=== PATIENT | female | born 1995 | race Two or more races ===

== ENCOUNTER 2019-02-18 18:48 | Emergency (ER) | payer OTHER ==
[2019-02-18] MEDS ORDERED: ACETAMINOPHEN 325 MG TABLET PO ONE (20:19)
[2019-02-18] MEDS ORDERED: IBUPROFEN 600 MG TABLET PO ONE (20:19)
--- NOTE | 2019-02-18 20:19 | ER Document Report ---
HPI - HPI Patient complains to provider of: Left foot injury Time Seen by Provider: 02/18/19 19:45 Context: 23-year-old healthy female presents emergency department after a left foot injury this morning playing soccer and attempted care and she jammed her left toe. She denies hearing a pop, snap, or any other sensation. She is able to bear weight on it with difficulty and it is acutely painful. There is associated swelling and significant ecchymosis around the entire toe. No other complaints. - REPRODUCTIVE Reproductive: DENIES: : Past Medical History - Social History Smoking Status: Never Smoker Chew tobacco use (# tins/day): No Frequency of alcohol use: Rare Drug Abuse: None Family History: None Patient has suicidal ideation: No Patient has homicidal ideation: No Renal/ Medical History: Denies: Hx Peritoneal Dialysis Vertical Provider Document - CONSTITUTIONAL Notes: PHYSICAL EXAMINATION: Reviewed vital signs and charting by RN GENERAL: Alert, interacts well. No acute distress. HEAD: Normocephalic, atraumatic. EYES: Pupils equal and round. Extraocular movements intact. ENT: Oral mucosa moist, tongue midline. EXTREMITIES: Moves all 4 extremities spontaneously. Left great toe with edema and significant ecchymosis, she does have minimal range of motion second to pain. Normal distal neurovascular exam with brisk cap refill. 2+ DP pulse. PSYCH: Normal affect, normal mood. SKIN: Warm, dry, normal turgor. No rashes or lesions noted. - INFECTION CONTROL TRAVEL OUTSIDE OF THE [place] IN LAST 30 DAYS: No Course - Re-evaluation Re-evalutation: 02/18/19 20:14 No evidence of a big toe fracture, most likely representing first metatarsophalangeal sprain i.e. turf toe. I will michele tape her foot and tell her to use reinforced foot wear and provide crutches. Normal distal neurova scular exam. Stable for discharge. - Vital Signs Vital signs: Temp Pulse Resp BP Pulse Ox 98.4 F 79 134/75 H 98 02/18/19 18:55 02/18/19 18:55 02/18/19 18:55 02/18/19 18:55 Discharge - Discharge Clinical Impression: Turf toe Qualifiers: Encounter type: initial encounter Qualified Code(s): S93.529A - Sprain of metatarsophalangeal joint of unspecified toe(s), initial encounter Condition: Good Disposition: HOME, SELF-CARE Additional Instructions: You were seen in the emergency department this evening for a condition called turf toe i.e. a metatarsophalangeal sprain of your left big toe. There was no fracture which is reassuring. You can michele tape the toe and be careful and reduce your activity for the next 1 to 2 weeks. Please use shoes with a stiff soled to provide better support. I can also provide you with a surgical shoe here for support. If you completely loose feeling of the toe, you get severe swelling, it turns black or necrotic, or you have any other concerning symptoms please merely return to the emergency department.
--- NOTE | 2019-02-18 20:32 | RADIOLOGY REPORT (SQ) ---
EXAM DESCRIPTION: Left foot, three views COMPLETED DATE/TIME: 02/18/2019 8:05 PM CLINICAL HISTORY: 23 years ,Female diffuse pain COMPARISON: None. TECHNIQUE: LEFT foot, Three view FINDINGS: No acute fractures or dislocations are identified. No osseous destructive lesions. There is some flattening of the head of the second metatarsal with some fragmentation. This suggests a chronic injury. No significant ankle effusion noted. IMPRESSION: No acute fracture or dislocation is identified. Flattening of the head of the second metatarsal with some adjacent fragmentation. This appears likely chronic in nature
[2019-02-18 21:32] VITALS: BP 116/67
== END 2019-02-18 21:30 | disposition home or self-care (01) ==
LOC: ER 18:48
DX: S93.522A Sprain of metatarsophalangeal joint of left great toe, initial encounter (principal); X58.XXXA Exposure to other specified factors, initial encounter; Y93.66 Activity, soccer
CPT/HCPCS: 99283